=== PATIENT | male | born 1965 | race Caucasian/White ===

== ENCOUNTER 2016-12-25 19:09 | Emergency (ER) | payer SELFPAY ==
[2016-12-25] MEDS ORDERED: CATAPRES PO ONE (20:40)
--- NOTE | 2016-12-25 20:41 | Emergency Department Report ---
ED General Adult HPI - General Chief complaint: High BP Stated complaint: BP HIGH Time Seen by Provider: 12/25/16 20:35 Source: patient, EMS (ems notes not available at time of chart dictation), RN notes reviewed Mode of arrival: Stretcher Limitations: No Limitations - History of Present Illness Initial comments: This is a 51-year-old male, the patient is previously known to this provider. Patient has a past medical history of hypertension by his report, and has not taken antihypertensive medication in the past year. He does not recall the name of his antihypertensive medication. Patient is suicidal, and went to a local psychiatric facility, and was sent here for medical clearance for a symptomatically hypertension. The patient has no headache, neck pain, chest pain, abdominal pain or shortness of breath. He is actively suicidal but is not expressing hallucinations, reports that he does not have access to guns or firearms. He reports his sensation of suicidality is constant, and will not describe exacerbating or relieving factors. -: Gradual Severity scale (0 -10): 1 Consistency: constant Improves with: none Worsens with: none Associated Symptoms: denies: chest pain, diaphoresis, headaches, loss of appetite, malaise, nausea/vomiting, rash, seizure, shortness of breath, syncope , weakness - Related Data Previous Rx's Medication Instructions Recorded Last Taken Type Amlodipine Besylate [Norvasc] 5 mg PO QDAY #30 tablet 12/25/16 Unknown Rx Allergies Allergy/AdvReac Type Severity Reaction Status Date / Time No Known Allergies Allergy Unverified 12/25/16 20:10 ED Review of Systems ROS: Stated complaint: BP HIGH Other details as noted in HPI Constitutional: malaise. denies: weakness ENT: denies: epistaxis Respiratory: denies: cough Cardiovascular: denies: chest pain Gastrointestinal: denies: abdominal pain Genitourinary: denies: dysuria Musculoskeletal: denies: as per HPI Skin: denies: lesions Psychiatric: denies: as per HPI, homicidal thoughts, suicidal thoughts ED Past Medical Hx - Past Medical History Hx Hypertension: Yes - Surgical History Past Surgical History?: No - Social History Smoking Status: Current Every Day Smoker Substance Use Type: Alcohol - Medications Home Medications: Home Medications Medication Instructions Recorded Confirmed Last Taken Type Amlodipine Besylate [Norvasc] 5 mg PO QDAY #30 tablet 12/25/16 Unknown Rx ED Physical Exam - General Limitations: No Limitations General appearance: alert, in no apparent distress - Head Head exam: Present: atraumatic, normocephalic - Eye Eye exam: Present: normal appearance, PERRL, EOMI, other (visual acuity intact to finger counting, color perception, reading at a close distance). Absent: nystagmus - ENT ENT exam: Present: normal exam, normal orophraynx, mucous membranes moist, normal external ear exam - Neck Neck exam: Present: normal inspection, full ROM. Absent: tenderness, meningismus - Respiratory Respiratory exam: Present: normal lung sounds bilaterally. Absent: respiratory distress, wheezes, rales, rhonchi, stridor, chest wall tenderness, accessory muscle use, decreased breath sounds, prolonged expiratory - Cardiovascular Cardiovascular Exam: Present: regular rate, normal rhythm, normal heart sounds. Absent: bradycardia, tachycardia, irregular rhythm, systolic murmur, diastolic murmur, rubs, gallop - GI/Abdominal GI/Abdominal exam: Present: soft, normal bowel sounds. Absent: distended, tenderness, guarding, rebound, rigid, pulsatile mass - Rectal Rectal exam: Present: deferred - Extremities Exam Extremities exam: Present: normal inspection, full ROM, normal capillary refill. Absent: pedal edema, joint swelling, calf tenderness - Back Exam Back exam: Present: normal inspection, full ROM. Absent: tenderness, CVA tenderness (R), CVA tenderness (L), muscle spasm, paraspinal tenderness, vertebral tenderness - Neurological Exam Neurological exam: Present: alert, oriented X3, normal gait, other (Extraocular movements intact. Tongue midline. No facial droop. Facial sensation intact to light touch in the V1, V2, V3 distribution bilaterally. 5 and 5 strength in 4 extremities.. Sensation is intact to light touch in 4 extremities.). Absent : motor sensory deficit - Psychiatric Psychiatric exam: Present: suicidal ideation. Absent: homicidal ideation - Skin Skin exam: Present: warm, dry, intact, normal color. Absent: rash ED Course Vital Signs 12/25/16 12/25/16 12/25/16 19:48 20:07 20:50 Temperature 99 F 99 F Pulse Rate 57 L 58 L 58 L Respiratory 18 18 Rate Blood Pressure 197/123 207/123 Blood Pressure 197/123 [Right] O2 Sat by Pulse 97 97 Oximetry 12/25/16 12/25/16 21:35 22:18 Temperature Pulse Rate 54 L Respiratory 18 18 Rate Blood Pressure Blood Pressure 147/91 [Right] O2 Sat by Pulse 100 96 Oximetry ED Medical Decision Making - Lab Data Result diagrams: 12/25/16 21:02 12/25/16 21:02 Vital Signs 12/25/16 12/25/16 12/25/16 19:48 20:07 20:50 Temperature 99 F 99 F Pulse Rate 57 L 58 L 58 L Respiratory 18 18 Rate Blood Pressure 197/123 207/123 Blood Pressure 197/123 [Right] O2 Sat by Pulse 97 97 Oximetry 12/25/16 12/25/16 21:35 22:18 Temperature Pulse Rate 54 L Respiratory 18 18 Rate Blood Pressure Blood Pressure 147/91 [Right] O2 Sat by Pulse 100 96 Oximetry Lab Results 12/25/16 12/25/16 12/25/16 Range/Units 21:02 21:02 21:02 WBC 12.0 H (4.5-11.0) K/mm3 RBC 5.28 H (3.65-5.03) M/mm3 Hgb 16.1 H (11.8-15.2) gm/dl Hct 48.8 H (35.5-45.6) % MCV 92 (84-94) fl MCH 31 (28-32) pg MCHC 33 (32-34) % RDW 15.5 H (13.2-15.2) % Plt Count 212 (140-440) K/mm3 Sodium 141 (137-145) mmol/L Potassium 4.5 (3.6-5.0) mmol/L Chloride 100.5 (98-107) mmol/L Carbon Dioxide 29 (22-30) mmol/L Anion Gap 16 mmol/L BUN 15 (9-20) mg/dL Creatinine 0.7 L (0.8-1.5) mg/dL Estimated GFR > 60 ml/min BUN/Creatinine Ratio 21 % Glucose 89 (75-100) mg/dL Calcium 9.1 (8.4-10.2) mg/dL Total Creatine Kinase 91 (55-170) units/L Urine Color (Yellow) Urine Turbidity (Clear) Urine pH (5.0-7.0) Ur Specific [place] (1.003-1.030) Urine Protein (Negative) mg/dL Urine Glucose (UA) (Negative) mg/dL Urine Ketones (Negative) mg/dL Urine Blood (Negative) Urine Nitrite (Negative) Urine Bilirubin (Negative) Urine Urobilinogen (<2.0) mg/dL Ur Leukocyte Esterase (Negative) Urine WBC (Auto) (0.0-6.0) /HPF Urine RBC (Auto) (0.0-6.0) /HPF Urine Mucus /HPF Salicylates (2.8-20.0) mg/dL Urine Opiates Screen Urine Methadone Screen Acetaminophen (10.0-30.0) ug/mL Ur Barbiturates Screen Ur Phencyclidine Scrn Ur Amphetamines Screen U Benzodiazepines Scrn Urine Cocaine Screen U Marijuana (THC) Screen Drugs of Abuse Note 12/25/16 12/25/16 12/25/16 Range/Units 21:02 21:02 21:27 WBC (4.5-11.0) K/mm3 RBC (3.65-5.03) M/mm3 Hgb (11.8-15.2) gm/dl Hct (35.5-45.6) % MCV (84-94) fl MCH (28-32) pg MCHC (32-34) % RDW (13.2-15.2) % Plt Count (140-440) K/mm3 Sodium (137-145) mmol/L Potassium (3.6-5.0) mmol/L Chloride (98-107) mmol/L Carbon Dioxide (22-30) mmol/L Anion Gap mmol/L BUN (9-20) mg/dL Creatinine (0.8-1.5) mg/dL Estimated GFR ml/min BUN/Creatinine Ratio % Glucose (75-100) mg/dL Calcium (8.4-10.2) mg/dL Total Creatine Kinase (55-170) units/L Urine Color Yellow (Yellow) Urine Turbidity Clear (Clear) Urine pH 7.0 (5.0-7.0) Ur Specific [place] 1.021 (1.003-1.030) Urine Protein <15 mg/dl (Negative) mg/dL Urine Glucose (UA) Neg (Negative) mg/dL Urine Ketones Neg (Negative) mg/dL Urine Blood Neg (Negative) Urine Nitrite Neg (Negative) Urine Bilirubin Neg (Negative) Urine Urobilinogen 4.0 (<2.0) mg/dL Ur Leukocyte Esterase Neg (Negative) Urine WBC (Auto) 1.0 (0.0-6.0) /HPF Urine RBC (Auto) 1.0 (0.0-6.0) /HPF Urine Mucus Few /HPF Salicylates < 0.3 L (2.8-20.0) mg/dL Urine Opiates Screen Urine Methadone Screen Acetaminophen < 15.0 (10.0-30.0) ug/mL Ur Barbiturates Screen Ur Phencyclidine Scrn Ur Amphetamines Screen U Benzodiazepines Scrn Urine Cocaine Screen U Marijuana (THC) Screen Drugs of Abuse Note 12/25/16 Range/Units 21:27 WBC (4.5-11.0) K/mm3 RBC (3.65-5.03) M/mm3 Hgb (11.8-15.2) gm/dl Hct (35.5-45.6) % MCV (84-94) fl MCH (28-32) pg MCHC (32-34) % RDW (13.2-15.2) % Plt Count (140-440) K/mm3 Sodium (137-145) mmol/L Potassium (3.6-5.0) mmol/L Chloride (98-107) mmol/L Carbon Dioxide (22-30) mmol/L Anion Gap mmol/L BUN (9-20) mg/dL Creatinine (0.8-1.5) mg/dL Estimated GFR ml/min BUN/Creatinine Ratio % Glucose (75-100) mg/dL Calcium (8.4-10.2) mg/dL Total Creatine Kinase (55-170) units/L Urine Color (Yellow) Urine Turbidity (Clear) Urine pH (5.0-7.0) Ur Specific [place] (1.003-1.030) Urine Protein (Negative) mg/dL Urine Glucose (UA) (Negative) mg/dL Urine Ketones (Negative) mg/dL Urine Blood (Negative) Urine Nitrite (Negative) Urine Bilirubin (Negative) Urine Urobilinogen (<2.0) mg/dL Ur Leukocyte Esterase (Negative) Urine WBC (Auto) (0.0-6.0) /HPF Urine RBC (Auto) (0.0-6.0) /HPF Urine Mucus /HPF Salicylates (2.8-20.0) mg/dL Urine Opiates Screen Presumptive negative Urine Methadone Screen Presumptive negative Acetaminophen (10.0-30.0) ug/mL Ur Barbiturates Screen Presumptive negative Ur Phencyclidine Scrn Presumptive negative Ur Amphetamines Screen Presumptive negative U Benzodiazepines Scrn Presumptive negative Urine Cocaine Screen Presumptive negative U Marijuana (THC) Screen Presumptive negative Drugs of Abuse Note Disclamer - EKG Data 12/25/16 22:19 Sinus bradycardia, 51 bpm, left axis deviation, left ventricular hypertrophy, T- wave inversions in the lateral leads, borderline left anterior fascicular block , abnormal EKG, not having chest pain, not morphologically consistent with STEMI. - Medical Decision Making Differential diagnosis: Asymptomatic hypertension, medication noncompliance, suicidality, adequate clearance for psychiatric placement Assessment and plan: 51-year-old male who is suicidal, placed on a 1013, with asymptomatic hypertension, has been noncompliant with medication therapy for over a year. Given this, the patient will not benefit from aggressive antihypertensive therapy, as it will most likely cause adverse events, including either cardiac or cerebral ischemia. Rather, it is in the patient's best interest to have his blood pressure gradually lowered over a prolonged period of time. In addition, as per the [employer] clinical policy on asymptomatic hypertension: 1. Are ED blood pressure readings accurate and reliable for screening asymptomatic patients for hypertension? Level A recommendations. None specified. Level B recommendations. If blood pressure measurements are persistently elevated with a systolic blood pressure greater than 140 mm Hg or diastolic blood pressure greater than 90 mm Hg, the patient should be referred for follow- up of possible hypertension and blood pressure management. Level C recommendations. Patients with a single elevated blood pressure reading may require further screening for hypertension in the outpatient setting. 2. Do asymptomatic patients with elevated blood pressures benefit from rapid lowering of their blood pressure? Level A recommendations. None specified. Level B recommendations. (1) Initiating treatment for asymptomatic hypertension in the ED is not necessary when patients have follow-up; (2) Rapidly lowering blood pressure in asymptomatic patients in the ED is unnecessary and may be harmful in some patients; (3) When ED treatment for asymptomatic hypertension is initiated, blood pressure management should attempt to gradually lower blood pressure and should not be expected to be normalized during the initial ED visit. Screening laboratory studies unremarkable, patient is clinically sober, has a GCS of 15, with an NIH score of 0, currently blood pressure is improved after clonidine, patient discharged on low-dose Norvasc, EKGs obtained prior to my evaluation, patient has no cardiac-related complaints at this time, therefore given lack of complaints I do not suspect acute coronary syndrome. The patient should actually follow-up and outpatient primary care doctor once she has been psychiatrically stabilized, but this point in time, there does not appear to be any immediate medical consultation indication to psychiatric admission/ evaluation and consultation. Critical care attestation.: If time is entered above; I have spent that time in minutes in the direct care of this critically ill patient, excluding procedure time. ED Disposition Clinical Impression: Elevated blood pressure reading, Suicidal intent Disposition: DC/TX-65 PSY HOSP/PSY UNIT Is pt being admited?: No Does the pt Need Aspirin: No Condition: Stable Instructions: Hypertension (ED) Additional Instructions: There is no medical contraindication to psychiatric evaluation, consultation and placement at this time. Please note that the patient has been off of antihypertensive medication for quite some time, and we'll therefore not benefit from aggressive and emergent decrease of his blood pressure. In fact, given that he is a symptomatically, aggressively and rapidly lowering blood pressure has improvement to precipitate stroke and ischemic event and adverse outcome. Furthermore, as per the [employer] clinical policy on a symptomatically hypertension: 1. Are ED blood pressure readings accurate and reliable for screening asymptomatic patients for hypertension? Level A recommendations. None specified. Level B recommendations. If blood pressure measurements are persistently elevated with a systolic blood pressure greater than 140 mm Hg or diastolic blood pressure greater than 90 mm Hg, the patient should be referred for follow- up of possible hypertension and blood pressure management. Level C recommendations. Patients with a single elevated blood pressure reading may require further screening for hypertension in the outpatient setting. 2. Do asymptomatic patients with elevated blood pressures benefit from rapid lowering of their blood pressure? Level A recommendations. None specified. Level B recommendations. (1) Initiating treatment for asymptomatic hypertension in the ED is not necessary when patients have follow-up; (2) Rapidly lowering blood pressure in asymptomatic patients in the ED is unnecessary and may be harmful in some patients; (3) When ED treatment for asymptomatic hypertension is initiated, blood pressure management should attempt to gradually lower blood pressure and should not be expected to be normalized during the initial ED visit. The patient will be prescribed a one-month supply of Norvasc, with a one-time refill, and he should follow up with outpatient primary care doctor once he is psychiatrically stabilized. It should be explained to the patient once he is psychiatrically stabilized that failure to follow-up for her hypertension may result in long-term consequences and complications medically, including stroke, heart attack, disability, , paralysis, loss of quality of life. Please have the patient return to the ER right away with fevers, chills, chest pain, service of breath, intractable nausea or vomiting, confusion, inability to tolerate liquid feeds. Prescriptions: Amlodipine Besylate [Norvasc] 5 mg PO QDAY #30 tablet Referrals: JENNA PIZARRO MD [Primary Care Provider] - 3-5 Days OLAMIDE CARLOS MD [Staff Physician] - 3-5 Days [facility] [Provider Group] - 3-5 Days
[2016-12-25 21:16] LABS: Hematocrit 48.8 % (35.5-45.6); Hemoglobin 16.1 gm/dl (11.8-15.2); Mean Corpuscular HGB Conc 33 % (32-34); Mean Corpuscular Hemoglobin 31 pg (28-32); Mean Corpuscular Volume 92 fl (84-94); Platelet Count 212 K/mm3 (140-440); Red Blood Count 5.28 M/mm3 (3.65-5.03); Red Cell Distribution Width 15.5 % (13.2-15.2)
[2016-12-25 21:30] LABS: Anion Gap 16 mmol/L; BUN/Creatinine Ratio 21; Blood Urea Nitrogen 15 mg/dL (9-20); Calcium 9.1 mg/dL (8.4-10.2); Carbon Dioxide 29 mmol/L (22-30); Chloride 100.5 mmol/L (98-107); Glucose 89 mg/dL (75-100); Potassium 4.5 mmol/L (3.6-5.0); Sodium 141 mmol/L (137-145)
[2016-12-25 21:34] LABS: Urine Drugs of Abuse Note Disclamer
[2016-12-25 21:40] LABS: Bilirubin,Urine NEG (Negative); Blood,Urine NEG (Negative); Ketones,Urine NEG (Negative); Leukocyte Esterase,Urine NEG (Negative); Mucus,Urine FEW /HPF; Nitrite,Urine NEG (Negative); Protein,Urine <15 mg/dL mg/dL (Negative)
[2016-12-25 22:19] VITALS: BP 147/91
== END 2016-12-25 22:52 ==
LOC: ED 19:09
DX: I10 Essential (primary) hypertension (principal); R45.851 Suicidal ideations; F17.200 Nicotine dependence, unspecified, uncomplicated
CPT/HCPCS: 36415; 80048; 80307; 81001; 82550; 85027; 93005; 93010; 99284; G0480; 80320

== ENCOUNTER 2020-07-03 14:10 | Emergency (ER) | payer SELFPAY ==
[2020-07-03 16:05] VITALS: BP 146/100
--- NOTE | 2020-07-03 17:57 | Event Note ---
ED Screening Note Date of service: 07/03/20 Time: 17:55 ED Screening Note: 54-year-old male patient with history of multiple DVT's (not currently anticoagulated) presents to the emergency department requesting a blood transfusion. Patient states he was evaluated at another local hospital yester day and was told he "needed blood," although he is unsure why. Patient states he left the hospital before he could be transfused. EMS reportedly found the patient in the parking lot today. General: Awake, appropriately interactive, no acute distress. Neck: Supple. Full range of motion intact. Cardiovascular: Normal peripheral perfusion. Pulmonary: No respiratory distress. Patient is speaking normally without use of accessory muscles. Skin: No apparent rashes or lesions. Neurological: No facial asymmetry. Speech is clear. Follows commands. Patient is alert and oriented. Musculoskeletal: Moves all four extremities spontaneously with normal range of motion. Psych: Cooperative. Appropriate mood and affect. I have greeted and performed a focused rapid initial assessment of this patient. A comprehensive ED assessment and evaluation of the patient, analysis of all test results, and completion of the medical decision-making process will be conducted by additional ED providers. This initial assessment/diagnostic orders/clinical plan/treatment(s) is/are subject to change based on patients health status, clinical progression and re-assessment. Further treatment and workup at subsequent clinical provider's discretion. Patient/guardian urged not to elope from the ED as their condition may be serious if not clinically assessed and managed.
== END 2020-07-03 18:08 | disposition left against medical advice (07) ==
LOC: ED 14:10
DX: R53.1 Weakness (principal); Z53.21 Procedure and treatment not carried out due to patient leaving prior to being seen by health care provider

== ENCOUNTER 2021-05-04 06:32 | Emergency (ER) | payer SELFPAY ==
--- NOTE | 2021-05-04 09:01 | Emergency Department Report ---
HPI - General Chief Complaint: Urogenital-Male Time Seen by Provider: 05/04/21 08:44 - HPI HPI: MSE 6 The patient is a 55-year-old male present with chief complaint of violent behavior. The patient is a poor historian but states he came to the emergency department because the woman who was home he lives and told him to come. The patient states today he was breaking things around the house and this upset the home order instructed him to come to the emergency department for evaluation. When asked why he was breaking things around the house the patient states he does not know. Patient denies suicidal homicidal ideation. Patient denies auditory or visual hallucinations. Patient is very emotionally labile and begins to cry at times during the interview. Otherwise patient denies having any other specific complaints ED Past Medical Hx - Past Medical History Previous Medical History?: Yes Hx Hypertension: Yes Hx Psychiatric Treatment: Yes - Surgical History Past Surgical History?: No - Family History Family history: no significant - Social History Smoking Status: Current Every Day Smoker Substance Use Type: None (Denies illicit drug use), Alcohol - Medications Home Medications: Home Medications Medication Instructions Recorded Confirmed Last Taken Type Amlodipine Besylate [Norvasc] 5 mg PO QDAY #30 tablet 12/25/16 01/10/17 01/09/17 Rx Citalopram [celeXA] 20 mg PO QDAY 01/10/17 01/10/17 01/09/17 History cloNIDine [Catapres] 0.1 mg PO BID 01/10/17 01/10/17 01/09/17 History traZODone [Desyrel] 50 mg PO QHS 01/10/17 01/10/17 01/09/17 History Citalopram [celeXA] 20 mg PO QDAY 30 Days #30 tablet 05/05/21 Unknown Rx traZODone [Desyrel] 50 mg PO QHS 30 Days #30 tab 05/05/21 Unknown Rx ED Review of Systems ROS: Stated complaint: LEFT LEG PAIN Other details as noted in HPI Constitutional: no symptoms reported Eyes: denies: eye pain ENT: denies: throat pain Respiratory: no symptoms reported Cardiovascular: denies: chest pain Endocrine: no symptoms reported Gastrointestinal: denies: abdominal pain Genitourinary: denies: dysuria Musculoskeletal: denies: back pain Neurological: denies: headache Psychiatric: denies: auditory hallucinations, visual hallucinations, homicidal thoughts, suicidal thoughts Physical Exam - Physical Exam Vital Signs: Vital Signs 05/04/21 08:13 Temperature 98 F Pulse Rate 71 Respiratory 16 Rate Blood Pressure 169/115 [Left] O2 Sat by Pulse 98 Oximetry Physical Exam: GENERAL: The patient is well-developed well-nourished male sitting on exam table not appearing to be in acute distress. [] HEENT: Normocephalic. Atraumatic. Extraocular motions are intact. Patient has moist mucous membranes. NECK: Supple. Trachea midline CHEST/LUNGS: Clear to auscultation. There is no respiratory distress noted. HEART/CARDIOVASCULAR: Regular. There is no tachycardia. There is no gallop rub or murmur. ABDOMEN: Abdomen is soft, nontender. Patient has normal bowel sounds. There is no abdominal distention. SKIN: There is no rash. There is no edema. There is no diaphoresis. NEURO: The patient is awake and alert. The patient is cooperative. The patient has no focal neurologic deficits. The patient has normal speech. GCS 15 MUSCULOSKELETAL: There is no evidence of acute injury. ED Course Vital Signs 05/04/21 08:13 Temperature 98 F Pulse Rate 71 Respiratory 16 Rate Blood Pressure 169/115 [Left] O2 Sat by Pulse 98 Oximetry ED Medical Decision Making - Lab Data Result diagrams: 05/04/21 10:40 05/04/21 10:40 - Differential Diagnosis Destructive behavior, adjustment disorder Critical care attestation.: If time is entered above; I have spent that time in minutes in the direct care of this critically ill patient, excluding procedure time. ED Disposition Clinical Impression: Emotional lability, Depression Disposition: 01 HOME / SELF CARE / HOMELESS Is pt being admited?: No Does the pt Need Aspirin: No Condition: Stable Instructions: Living With Depression Additional Instructions: Please follow-up using the following outpatient resources. Return to the emergency department should he develop any thoughts of hurting yourself or for any other new health concerns. Professional and Agency Contacts To help [facility] (07/10) [place] Crisis Line: Suicide Prevention Line: Crisis Text Line: Text START to 734277 Emergency: 911 Outpatient COMMUNITY Behavioral Health Resources: [place]: [facility] [address], [place] [address] [place]: [facility] [address] [place] [address] Friday thru Friday - 8am - 5pm Call to schedule an assessment for mental health and substance abuse programs [place]: [facility] Address: [address] [place] [address] Friday thru Friday- 7am-2pm [facility] Address: [address] [place] [address] Friday thru Friday: 8:30AM-5PM Prescriptions: Citalopram [celeXA] 20 mg PO QDAY 30 Days #30 tablet traZODone [Desyrel] 50 mg PO QHS 30 Days #30 tab Referrals: PRIMARY CARE, [Primary Care Provider] - 3-5 Days
[2021-05-04 11:11] LABS: Hematocrit 47.8 % (35.5-45.6); Hemoglobin 15.1 gm/dl (11.8-15.2); Mean Corpuscular HGB Conc 32 % (32-34); Mean Corpuscular Volume 89 fl (84-94); Platelet Count 179 K/mm3 (140-440); Red Blood Count 5.34 M/mm3 (3.65-5.03); Red Cell Distribution Width 15.3 % (13.2-15.2)
[2021-05-04 11:17] LABS: BUN/Creatinine Ratio 24; Blood Urea Nitrogen 19 mg/dL (9-20); Hemolysis Index 69
[2021-05-04] MEDS ORDERED: cloNIDine 0.1 MG TAB PO ONE (22:25)
--- NOTE | 2021-05-05 11:35 | Event Note ---
Date: 05/05/21 55-year-old male here with aggression/violence and emotional lability with suspicion for possible acute psychosis. He was seen by my colleague and medically cleared for psychiatric evaluation placement. Vital signs reviewed and are stable. He was seen by the mental health/psychiatry team today who recommended discharge with outpatient resources.
--- NOTE | 2021-05-05 12:07 | Consultation ---
History of Present Illness - Reason for Consult Consult date: 05/05/21 Reason for consult: Mental health evaluation - History of Present Psychiatric Illness ED Note: The patient is a 55-year-old male present with chief complaint of violent behavior. The patient is a poor historian but states he came to the emergency department because the woman who was home he lives and told him to come. The patient states today he was breaking things around the house and this upset the home order instructed him to come to the emergency department for evaluation. When asked why he was breaking things around the house the patient states he does not know. Patient denies suicidal homicidal ideation. Patient denies auditory or visual hallucinations. Patient is very emotionally labile and begins to cry at times during the interview. Otherwise patient denies having any other specific complaints. The patient was seen this morning. He states he was sitting on the toilet and called the ambulance. He mentioned that he lives with a friend since his [place]. The patient denies being depressed or feeling excessively anxious. He states that he wants to go home. He denies any current suicidal/homicidal ideation and denies hallucinations. PAST PSYCHIATRIC HISTORY Diagnoses: Bipolar Suicide attempts or Self-harm behavior: None reported Prior psychiatric hospitalizations: Denies Substance Abuse history: Denies Previous psychiatric medications tried: unable to recall Outpatient treatment: denies PAST MEDICAL HISTORY: Family Psychiatric History: None reported or documented SOCIAL HISTORY Marital Status: Single Living Arrangements: lives with a friend Employment Status: Unemployed Access to guns/weapons: None reported Education: 12th grade History of Abuse: None reported Legal History: Unknown REVIEW OF SYSTEMS Constitutional: Negative for weight loss ENT: Negative for stridor Respiratory: Negative for cough or hemoptysis All other systems reviewed and are negative MENTAL STATUS EXAMINATION General Appearance and Behavior: Age appropriate, good hygiene, wearing appropriate clothes, good eye contact, cooperative with questioning Cooperation: Participating/engaged Psychomotor Behavior: unremarkable and within normal limits Mood: Depressed Affect and affective range: congruent with mood Thought Process: circumstantial Thought Content:Reality oriented Speech: Normal volume, Regular rate and rhythm. Intellectual Functioning: Average Suicidal Ideation: Denies Homicidal Ideation: Denies Hallucinations: Denies Delusions: None elicited Impulse Control: Limited Insight and Judgment: limited insight and poor judgment Memory: Normal Attention: Normal Orientation: Alert, oriented. Assessment and Plan (1) Bipolar Disorder Current Visit: No Status: Acute Treatment Plan [id number] Start Celexa 20mg po daily Start Trazodone 50mg po QHS Risks, benefits and alternatives of medications discussed with the patient, questions answered and consent obtained from patient. PSYCHOTHERAPY: Supportive psychotherapy provided MEDICAL: Per primary team DELIRIUM PRECAUTIONS: Please re-orient patient frequently, keep lights on during the day, and minimize benzodiazepines and opiates as these medications could worsen patient's confusion. SALES SUPERINTENDENT: non indicated DISPOSITION: Do not recommend acute inpatient psychiatric hospitalization at this time. FOLLOW-UP: Will sign off. Please contact with any questions and/or concerns. Case staffed with Dr. Eastman Medications and Allergies Allergies Allergy/AdvReac Type Severity Reaction Status Date / Time No Known Allergies Allergy Unverified 12/25/16 20:10 Home Medications Medication Instructions Recorded Confirmed Last Taken Type Amlodipine Besylate [Norvasc] 5 mg PO QDAY #30 tablet 12/25/16 01/10/17 01/09/17 Rx Citalopram [celeXA] 20 mg PO QDAY 01/10/17 01/10/17 01/09/17 History cloNIDine [Catapres] 0.1 mg PO BID 01/10/17 01/10/17 01/09/17 History traZODone [Desyrel] 50 mg PO QHS 01/10/17 01/10/17 01/09/17 History Citalopram [celeXA] 20 mg PO QDAY 30 Days #30 tablet 05/05/21 Unknown Rx traZODone [Desyrel] 50 mg PO QHS 30 Days #30 tab 05/05/21 Unknown Rx Mental Status Exam - Vital signs Last Vital Signs Temp 97.2 F L 05/05/21 11:00 Pulse 55 L 05/05/21 11:00 Resp 18 05/05/21 11:00 BP 165/98 05/05/21 11:00 Pulse Ox 97 05/05/21 11:00 Results Result Diagrams: 05/04/21 10:40 05/04/21 10:40 All other labs normal.
[2021-05-05 14:45] LABS: Color,Urine Yellow (Yellow)
[2021-05-05 14:46] LABS: Amorphous Crystals,Urine Few; Bilirubin,Urine NEG (Negative); Blood,Urine SM (Negative); Mucus,Urine FEW /HPF; Protein,Urine <15 mg/dL mg/dL (Negative)
[2021-05-05 14:47] LABS: Amphetamine Screen,Urine Negative; Benzodiazepines Screen,Urine Negative; Cannabinoid Screen,Urine Negative; Cocaine Screen,Urine Negative; Methadone Screen,Urine Negative; Opiate Screen,Urine Negative
[2021-05-05 19:45] VITALS: BP 115/58
== END 2021-05-05 19:45 | disposition home or self-care (01) ==
LOC: ED 06:32
DX: F32.9 Major depressive disorder, single episode, unspecified (principal); R45.86 Emotional lability; I10 Essential (primary) hypertension; F17.200 Nicotine dependence, unspecified, uncomplicated; Z72.89 Other problems related to lifestyle; Z79.899 Other long term (current) drug therapy
CPT/HCPCS: 36415; 80048; 80307; 80320; 81001; 85025; 99284; G0480